=== PATIENT | male | born 1960 | race Caucasian/White ===

== ENCOUNTER 2019-05-08 08:37 | Emergency (ER) | payer OTHER, SELFPAY ==
[2019-05-08 08:37] VITALS: BP 159/96; PULSE 60; RESP 18; TEMP 36.6; O2SAT 99; BMI 28.0
--- NOTE | 2019-05-08 09:05 | EKG12_ITS ---
Test Reason : WEAKNESS Blood Pressure : / mmHG Vent. Rate : 052 BPM Atrial Rate : 052 BPM P-R Int : 140 ms QRS Dur : 104 ms QT Int : 416 ms P-R-T Axes : 048 -28 022 degrees QTc Int : 386 ms Sinus bradycardia Otherwise normal ECG Confirmed by NIYA MCCLENDON, MICAH ([id number]), supervising film or videotape editor BOB SIERRA ([id number]) on 05/09/2019 9:06:41 AM Referred By: GET Confirmed By:MICAH NÚÑEZ MD
--- NOTE | 2019-05-08 09:05 | CT_ITS ---
STUDY: CT BRAIN WITHOUT CONTRAST REASON FOR EXAM: Male, 58 years old. Dizziness, hypertension RADIATION DOSAGE (If Supplied By Facility): CTDIvol = ( 44.99 ) mGy, DLP = ( 745.49 ) mGycm TECHNIQUE: Transaxial CT imaging of the brain was performed without administration of intravenous contrast material. Individualized dose optimization techniques were used for this CT. COMPARISON: No relevant priors. FINDINGS: Normal soft tissue structures. Normal calvarium. Normal size ventricles and extra-axial spaces for the patient's age. Normal white matter tracts of the cerebral hemispheres. Normal basal ganglia and thalami. Normal brainstem. Normal cerebellum. There is no intracranial hemorrhage. There are no findings of an acute ischemic infarction. Normal visualized paranasal sinuses. CT/Brain/Head without Contrast IMPRESSION: Normal unenhanced CT scan of the brain. Electronically Signed: Elton Kapoor MD at 9:51 EDT , Service support ,
--- NOTE | 2019-05-08 09:07 | ED.VISSUMM ---
- ER Visit Summary Date of Service: 05/08/19 Chief Complaint: Lightheadedness History of Present Illness: The patient is a 58 M with dizziness and lightheadedness. Patient states this started this morning. He complains of dizziness, no syncope. He denies chest pain. He has had mild shortness of breath. States he has a tingling sensation all over. He has nausea with no vomiting. Denies fever. Denies other complaints. He is a smoker, no other CAD risk factors. No PE/DVT risk factors. Physical Examination: Vitals are stable. Patient is afebrile. Alert no acute distress. HEENT exam is unremarkable. PERRL, EOMI Neck is supple. Lungs are clear and equal bilaterally. Heart is regular rate and rhythm. Abdomen is soft mild epigastric tenderness with no guarding or rebound. Extremities are unremarkable. Skin is warm and dry. No focal neurologic deficit. NIH 0 Remainder of exam is unremarkable. Emergency Department Course and Treatment: Patient was given IV fluids, Zofran. CBC, chemistries are unremarkable other than BUN 19. Troponin is negative. Orthostatics are negative. EKG is sinus bradycardia rate of 52. CT head shows no acute process. Patient states his heart rate tends to run low and is usually in the 50s. He states that he has had trouble with a right eye corneal abrasion for the past several months. He has been seen by ophthalmology. He states that his eyes dry up which tends to flares up his symptoms. He has pain in the right eye currently. Tetracaine was instilled with resolution of his pain. There is no fluorescein dye uptake. He has antibiotic ointment at home that he will use. He will follow-up with ophthalmology. He is feeling improved in the ED. Delta troponin was obtained and is also negative. He will follow-up with his primary care physician. He is advised to return to ED for worsening complaints. Disposition: Discharge home Impression: Dizziness, resolved This note was generated with [employer] dictation software. It may contain incorrect words, spelling, and punctuation that were not noted in review of the chart prior to signing ED Disposition - Plan for ED Patient: Instructions: DIZZINESS, Unk Cause Referrals: Ramon Wang MD [Primary Care Provider] -
[2019-05-08 09:21] VITALS: BP 153/92; BP 164/93; BP 167/93; PULSE 54; PULSE 55
[2019-05-08] MEDS: Ondansetron 4 MG/2 ML Vial IV (09:28)
[2019-05-08] MEDS: 0.9% Normal Saline 1,000 ML 1000 ML IV (09:28)
[2019-05-08 09:36] LABS: Absolute Lymphocyte Count 1.25 X10^3/uL (0.83-4.51); Absolute Neutrophil Count 3.9 X10^3/uL (2.0-7.7); Basophil# 0.04 X10^3/uL; Basophil% 0.7 % (0-1); Eosinophil# 0.23 X10^3/uL; Eosinophils% 3.9 % (0-5); Lymphocyte # 1.25 X10^3/ul (4.0); Lymphocyte % 21.1 % (19-41); Mean Corp Hgb Conc 33.3 g/dL (32-36); Mean Corpuscular Hgb 32.8 pg (27.0-32.0); Mean Corpuscular Volume 98.3 fL (80-94); Mean Platelet Vol. 10.6 fl (6.2-12.0); Monocyte# 0.47 X10^3/uL; Monocyte% 7.9 % (0-10); NRBC Flagged by Analyzer 0 % (0-5); Neutrophil # 3.91 X10^3/uL (2.7-7.7); Neutrophil % 66.1 % (47-70); Platelet Count 179 K/mm3 (150-450); RBC Distribution Width SD 43.3 fl (35.1-43.9); Red Blood Count 4.58 M/mm3 (4.6-6.2); White Blood Count 5.9 K/mm3 (4.4-11.0)
[2019-05-08 09:45] LABS: Anion Gap 2 (5-15); BUN 19 mg/dL (7-18); BUN/Creat Ratio 19.7 RATIO (10-20); Calcium,Total 8.9 mg/dL (8.5-10.1); Chloride 109 mmol/L (98-107); Creatinine, Serum 0.96 mg/dL (0.70-1.30); EST Glomerular Filtration Rate 85 mL/min (>60); Est Glom Filt Rate - Afr Amer 103 mL/min (>60); Estimated Creatinine Clearance 83.87 ml/min; Glucose 101 mg/dL (74-106); Lipase 88 U/L (73-393); Potassium 4.2 mmol/L (3.5-5.1); Sodium Level 139 mmol/L (136-145)
[2019-05-08] MEDS: Tetracaine 0.5% Ophthalmic Bottle 1 DRP RIGHT EYE (10:12)
[2019-05-08] MEDS: Fluorescein 1 MG STRIP 1 STRIP RIGHT EYE (10:12)
[2019-05-08 10:37] VITALS: BP 167/93; PULSE 54; RESP 18; O2SAT 97
[2019-05-08 12:00] VITALS: BP 125/84; PULSE 50; RESP 16; O2SAT 97
--- NOTE | 2019-05-08 13:23 | ED.DEP ---
ED Disposition - Plan for ED Patient: Instructions: DIZZINESS, Unk Cause Referrals: Ramon Wang MD [Primary Care Provider] -
[2019-05-08 13:43] VITALS: BP 131/84; PULSE 54; RESP 18
== END 2019-05-08 13:44 | disposition home or self-care (01) ==
PROVIDERS: Emergency Provider Emergency Medicine; Family Provider Family Medicine; PCP Family Medicine
DX: R42 Dizziness and giddiness (principal); I10 Essential (primary) hypertension; R00.1 Bradycardia, unspecified; R06.00 Dyspnea, unspecified; F17.200 Nicotine dependence, unspecified, uncomplicated; Z79.82 Long term (current) use of aspirin; Z79.899 Other long term (current) drug therapy
CPT/HCPCS: 70450; 80048; 83690; 84484; 85025; 93005; 96361; 96374; 99285; J7030; A4216; J2405

== ENCOUNTER → 2025-02-22 | Outpatient (CLI) | payer OTHER, SELFPAY ==
--- NOTE | 2025-02-22 09:32 | RAD_ITS ---
EXAM: XR Chest, 2 Views CLINICAL INDICATION: CHEST DISCOMFORT TECHNIQUE: Frontal and lateral views of the chest. COMPARISON: No relevant prior studies available. FINDINGS: LUNGS AND PLEURAL SPACES: Unremarkable. No consolidation. No pneumothorax. HEART: Unremarkable. No cardiomegaly. MEDIASTINUM: Unremarkable. Normal mediastinal contour. BONES/JOINTS: Unremarkable. No acute fracture. RAD/Chest PA and Lateral IMPRESSION: No acute cardiopulmonary process. Reading Location: [facility]
[2025-02-22 10:44] LABS: Hematocrit 47.5 % (40-54); Hemoglobin 16.8 g/dL (13.0-16.5); Immature Granulocytes Count 0.030 X10^3/uL (0.0-0.0); Mean Corp Hgb Conc 35.4 g/dL (32-36); Mean Corpuscular Volume 98.1 fL (80-94); Mean Platelet Vol. 10.9 fl (6.2-12.0); NRBC Flagged by Analyzer 0 % (0-5); Platelet Count 206 K/mm3 (150-450); RBC Distribution Width CV 12.4 % (11.6-14.6); RBC Distribution Width SD 44.9 fl (35.1-43.9); Red Blood Count 4.84 M/mm3 (4.6-6.2); White Blood Count 7.4 K/mm3 (4.4-11.0)
[2025-02-22 11:37] LABS: AST(SGOT) 21 U/L (<=37); Alanine Aminotransfer ALT/SGPT 20 U/L (<=46); Albumin, Serum 4.4 g/dL (3.4-4.8); Alkaline Phosphatase 92 U/L (40-129); Anion Gap 11 (5-15); BUN 11 mg/dL (4-19); BUN/Creat Ratio 13.2 RATIO (10-20); Calcium,Total 9.8 mg/dL (7.6-11.0); Carbon Dioxide 24.6 mmol/L (21.0-32.0); Chloride 105 mmol/L (98-108); Cholesterol 228 mg/dL (<=200); Globulin 3.0 g/dL (2.2-4.2); Glucose 94 mg/dL (70-99); Low Density Lipoprotein Calc. 151 mg/dL; Magnesium 2.3 mg/dL (1.5-2.2); Potassium 5.2 mmol/L (3.3-5.1); Triglycerides 88 mg/dL; Very Low Density Lipoprotein 18 mg/dL (5-40); cholesterol:hdl ratio screen 3.86
== END | disposition home or self-care (01) ==
PROVIDERS: PCP Family Medicine; Referring Provider Nurse Practitioner Primary Care; Visit Provider Nurse Practitioner Primary Care
DX: I10 Essential (primary) hypertension (principal); E78.5 Hyperlipidemia, unspecified; R07.89 Other chest pain
CPT/HCPCS: 36415; 71046; 80053; 80061; 83735; 85025